=== PATIENT | female | born 1995 | race Caucasian/White ===

== ENCOUNTER 2022-10-24 10:30 | Emergency (ER) | payer BC ==
[~2022-10-24] VITALS: Ht 170.2 cm; Wt 70.3 kg
== END 2022-10-24 14:12 | disposition home or self-care (01) ==
LOC: ER 10:30
DX: S09.8XXA Other specified injuries of head, initial encounter (principal); W05.2XXA Fall from non-moving motorized mobility scooter, initial encounter; Y93.I9 Activity, other involving external motion; Y92.413 State road as the place of occurrence of the external cause; Z88.2 Allergy status to sulfonamides; S69.81XA Other specified injuries of right wrist, hand and finger(s), initial encounter